=== PATIENT | female | born 1990 | race Native Hawaiian/Other Pacific Islander ===

== ENCOUNTER 2020-09-19 12:56 | Inpatient (IN) | payer OTHER ==
[~2020-09-19] VITALS: Ht 157.5 cm; Wt 97.3 kg
[2020-10-01] VITALS (17 sets, daily range): BP systolic 87–114; BP diastolic 49–80; PULSE 62–112; TEMP 97.6–98
--- NOTE | 2020-10-01 05:45 | NUR ---
Ambulatory to unit for scheduled repeat C/S , accompanied by spouse. Oriented to room, plan of care. Questions invited and answered.
--- NOTE | 2020-10-01 06:30 | NUR ---
Assumed care of patient. Assessment done, questions offered and answered.
[2020-10-01 06:44] LABS: BASO % 0.3 % (0.0-2.0); EOS # 0.1 (0.0-0.7); EOS % 1.3 % (0-4.0); GRAN # 6.9 (1.4-6.5); GRAN % 71.1 % (42.2-75.2); HEMOGLOBIN 11.9 g/dl (12.5-16.0); LYMPH # 1.9 (1.2-3.4); LYMPH % 19.5 % (20.0-51.0); MEAN CELL VOLUME 72 fl (80.0-100.0); MEAN CORPUSCULAR HEMOGLOBIN 24 pg (27.0-31.0); MEAN CORPUSCULAR HGB CONC 33 g/dl (33.0-37.0); MEAN PLATELET VOLUME 10.2 fl (7.4-10.4); MONO # 0.7 (0.1-0.6); MONO % 7.2 % (1.7-9.3); PLATELET COUNT 312 K/mm3 (130-400); RED BLOOD COUNT 4.92 M/mm3 (4.10-5.30); REDCELL DISTRIBUTION WIDTH-CV 13.7 % (11.5-14.5)
[2020-10-01 06:45] LABS: HEMATOCRIT 35.6 % (37.0-47.0)
--- NOTE | 2020-10-01 08:35 | NUR ---
To pacu via bed with this nurse and Nilesh anesthesia. Denies any discomfort at this time. Monitors on.
--- NOTE | 2020-10-01 08:45 | NUR ---
Baby brought to room. Breastfeeds baby.
--- NOTE | 2020-10-01 08:55 | NUR ---
Continues to breastfeed baby. Denies any needs at this time.
--- NOTE | 2020-10-01 09:05 | NUR ---
Dismissed from pacu to room 210 via bed with two r.n.s
[2020-10-02] VITALS (7 sets, daily range): BP systolic 92–118; BP diastolic 56–80; PULSE 72–84; TEMP 97.6–98.4
--- NOTE | 2020-10-02 09:17 | NUR ---
Initial visit; Parents thanked Cold Press Loader for offering congratulations and God's blessings for the of their son. Cold Press Loader thanked family for choosing [facility].
[2020-10-02] MEDS ORDERED: IBU600 MG PO (10:01)
[2020-10-02] MEDS ORDERED: PERCOCET 325 MG1 TA2 PO (10:01)
--- NOTE | 2020-10-02 18:40 | NUR ---
Report recieved. Ambulating well in room. POC reviewed and whiteboard updated. Percocet administered per request. Going to breastfeed infant.
--- NOTE | 2020-10-02 20:30 | NUR ---
Pt reports 's "work friend/commander" is here to get him. Requested assistance with helping him out to the car. Spouse sleeping on the window chair at this time. Pt attempts to wake him; he would mutter a string of words then continue to sleep. This nurse spoke with unit charge nurse and brought the "commander" to the unit. Commander states, "he needs help and I am here to help him get the help he needs." Pt, spouse, and commander left to speak privately upon arrival to the room; spouse states upon arrival, "I called for you to pick me up yesterday, not today" then requests nurse to leave. Security on the unit at this time as spouse appears stiff and pt is tense and tearful. At 2049 spouse and commander exit facility. Patient states, "he is an alcoholic and reported to a program through the . That was his work david." Reports she would like time to decompress. Encouraged to call if she would like staff to be at the bedside for emotional or physical support.
[2020-10-03 06:51] VITALS: BP 120/76; PULSE 97; TEMP 98.9
--- NOTE | 2020-10-03 07:01 | NUR ---
RN at bedside to discuss events from last night with . Patient tearful and very appreciative of RN support. Discussed plan of care for social service consult while is not here. Patient states "We have been dealing with his alcoholism for years but it came to a head in July. He is in a program with the , but it's just alot. I am trying to set boundaries." RN explains that health care social worker will be able to ensure resoucres and support for when patient is discharged. Patient agrees and is very appreciative. Patient states she feels safe at home and denies any history of abuse.
--- NOTE | 2020-10-03 08:40 | NUR ---
Abrasive Band Winder at bedside.
--- NOTE | 2020-10-03 10:30 | NUR ---
Welt Rander responded to consult in the OB for patient who reports her is currently receiving alcohol treatment and is interested in services. LINDA collaborated with RN, Zoe who advised patient's , Parth (ph#[phone]) appeared to be intoxicated last evening and was slurring his words. Zoe advised that patient contacted someone from Parth's command to come pick him up. 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 Zoe advised that patient has been tearful and has been trying to establish boundaries with Parth. Zoe advised patient reports she does not feel that she is in danger, but would like SW to follow up. SW met with patient who reports she lives in [place] with Parth and her two other children, ages 6 and 1. Patient states her oldest child has a different father but that her one year old and are both Parth's. Patient states she is currently working out a custody arrangement with her oldest's father which has been causing additional stress. Patient is originally from [place] and moved here with her on assignment. Patient advised her oldest's father lives in [place]. Patient is a stay at home mom and states she plans to breast feed. Patient reports she has all needed supplies for baby at home. SW addressed Parth's alcohol use with patient who advised she and Parth were in 2018 and he then deployed to [place]. After Parth returned from [place] and they lived together multimedia manager, she started to notice his drinking as an issue. Patient states her also suffers from PTSD. Patient and Parth moved here to [place] in March and a few weeks ago, Parth sought help through the for his drinking. Patient states Parth is private about his drinking but that he is currently receiving outpatient treatment [facility]. Patient believes Parth was prescribed a medication to help curb his addiction. SW asked patient directly if Parth has ever made her or her children feel unsafe. Patient states she feels safe and that she has never felt Parth has put her or the children in harms way. Patient states Parth mostly just "falls asleep" when he's been drinking. Patient also states she is always home to supervise the children. Patient states she is trying to set more boundaries with Parth, like when she asked him to leave the hospital last night. Patient became tearful discussing this and SW provided emotional support. Patient again states she feels safe returning home with her children. Patient states her other children are currently with her friend, Whitney who has been very supportive during this time. Patient states Whitney's has also tried talking with Parth about his drinking. Whitney will come picket labor union patient today when she discharges. SW provided [facility] Resource Guide to patient and reviewed it. SW discussed services from [facility] and the Crisis [facility]. Patient states she doesn't think they qualify for [facility] and was not interested in having visits through the health department. SW also discussed mental health services and patient states she believes a referral has been sent to Yanet Shannon, Therapist. Patient gave permission for LINDA to contact Yanet and provide patient's contact information. Patient has no futher questions or concerns at this time. SW contacted Yanet and left a message with patient's contact information. LINDA then collaborated the above information to ABDOUL Turner.
== END 2020-10-03 14:00 | disposition home or self-care (01) | DRG 788 ==
LOC: OB 10-01 05:27
PROVIDERS: ADMIT Obstetrics & Gynecology
PROC: 10D00Z1 Extraction of Products of Conception, Low, Open Approach (ICD-10-PCS; principal; 2020-10-01)
DX: O34.211 Maternal care for low transverse scar from previous cesarean delivery (principal); Z3A.39 39 weeks gestation of pregnancy; O99.02 Anemia complicating childbirth; D64.9 Anemia, unspecified; Z37.0 Single live birth
CPT/HCPCS: J1100; J1885; J2405; J2590; J7120

== ENCOUNTER → 2020-10-01 | Outpatient (CLI) | payer OTHER ==
[~2020-10-01] MED LIST: IBU600 MG PO; PERCOCET 325 MG1 TA2 PO
== END ==
LOC: ZCOL.LAB
DX: Z20.822 Contact with and (suspected) exposure to COVID-19 (principal)